=== PATIENT | female | born 1955 | race American Indian/Alaskan Native ===

== ENCOUNTER 2019-04-01 15:27 | Emergency (ER) | payer MEDICARE ==
--- NOTE | 2019-04-01 15:52 | Event Note ---
ED Screening Note Date of service: 04/01/19 Time: 15:48 ED Screening Note: This is a 64 y.o. F. that presents to the ER with swelling and tenderness to left deltoid for 2 weeks. Patient states she received a flu immunization 03/12/2019. Reports left sided neck pain and LUE. Taking NSAIDs without improvement. This initial assessment/diagnostic orders/clinical plan/treatment(s) is/are subject to change based on patients health status, clinical progression and re- assessment by fellow clinical providers in the ED. Further treatment and workup at subsequent clinical providers discretion. Patient/guardian urged not to elope from the ED as their condition may be serious if not clinically assessed and managed. Initial orders include:
[2019-04-01] MEDS ORDERED: TORADOL IM ONE (18:22)
--- NOTE | 2019-04-01 18:28 | Emergency Department Report ---
ED Neck Pain/Injury HPI - General Chief Complaint: Medical Clearance Stated Complaint: LFT SIDE PAIN Time Seen by Provider: 04/01/19 15:48 Mode of arrival: Ambulatory Limitations: No Limitations - History of Present Illness Initial Comments: Mrs. Oemr is a very pleasant 64-year-old female with history of hypertension and diabetes mellitus who presents with 1 week of left neck and left trapezius pain. 2 weeks ago she received flu immunization and her left shoulder. She denies any fever. She has pain with palpation of the left-sided neck and trapezius region. She has pain with moving her neck without side. She denies any persistent shoulder pain. No fever. No previous history of neck issues. Ibuprofen did not provide any relief. She was able to drive her private auto to the emergency department PCP Dr. Cuellar in [place] Complaint: neck pain -: Gradual, week(s) (1) Place: home, work Radiation: left lateral Severity: moderate Severity scale (0 -10): 7 Quality: dull Consistency: constant Improves With: none Worsens With: movement of neck Context: unknown Associated Symptoms: none - Related Data Previous Rx's Medication Instructions Recorded Last Taken Type Cyclobenzaprine [Flexeril] 10 mg PO TID PRN #20 tablet 04/01/19 Unknown Rx HYDROcodone/APAP 5-325 [[place] 1 each PO Q6HR PRN #10 tablet 04/01/19 Unknown Rx 5/325] Allergies Allergy/AdvReac Type Severity Reaction Status Date / Time No Known Allergies Allergy Unverified 04/01/19 15:28 ED Review of Systems ROS: Stated complaint: LFT SIDE PAIN Other details as noted in HPI Comment: All other systems reviewed and negative Constitutional: denies: fever, malaise Respiratory: denies: cough Cardiovascular: denies: chest pain Gastrointestinal: denies: abdominal pain, nausea, vomiting Skin: denies: rash, lesions Neurological: denies: headache, numbness, paresthesias ED Past Medical Hx - Past Medical History Previous Medical History?: Yes Hx Hypertension: Yes Hx Diabetes: Yes - Family History Family history: hypertension - Social History Smoking Status: Never Smoker Substance Use Type: None - Medications Home Medications: Home Medications Medication Instructions Recorded Confirmed Last Taken Type Cyclobenzaprine [Flexeril] 10 mg PO TID PRN #20 tablet 04/01/19 Unknown Rx HYDROcodone/APAP 5-325 [[place] 1 each PO Q6HR PRN #10 tablet 04/01/19 Unknown Rx 5/325] ED Physical Exam - General Limitations: No Limitations General appearance: alert, in no apparent distress, other (appears comfortable, appears healthy moves head easily) - Head Head exam: Present: atraumatic, normocephalic - Eye Eye exam: Present: normal appearance - ENT ENT exam: Present: mucous membranes moist - Neck Neck exam: Present: normal inspection, full ROM, other (tense left trapezius muscle). Absent: tenderness, meningismus - Respiratory Respiratory exam: Present: normal lung sounds bilaterally. Absent: respiratory distress, wheezes, rales, rhonchi - Cardiovascular Cardiovascular Exam: Present: regular rate, normal rhythm, normal heart sounds. Absent: systolic murmur, diastolic murmur, rubs, gallop - GI/Abdominal GI/Abdominal exam: Present: soft, normal bowel sounds. Absent: distended, tenderness, guarding, rebound - Extremities Exam Extremities exam: Present: normal inspection - Neurological Exam Neurological exam: Present: alert, oriented X3 - Psychiatric Psychiatric exam: Present: normal affect, normal mood - Skin Skin exam: Present: warm, dry, intact, normal color. Absent: rash ED Course Vital Signs 04/01/19 15:48 Temperature 97.6 F Pulse Rate 67 Respiratory 18 Rate Blood Pressure 180/73 O2 Sat by Pulse 100 Oximetry ED Medical Decision Making - Medical Decision Making Left-sided pain radiating into the trapezius: Differential diagnosis includes musculoskeletal versus cervical DDD. No indication of consultation from flu vaccination. She received Toradol IM in the emergency department. Prescribed norco and Flexeril. Strongly encouraged evaluation by her PCP for physical therapy and outpatient imaging. Critical care attestation.: If time is entered above; I have spent that time in minutes in the direct care of this critically ill patient, excluding procedure time. ED Disposition Clinical Impression: Cervical strain, acute Disposition: DC-01 TO HOME OR SELFCARE Is pt being admited?: No Does the pt Need Aspirin: No Condition: Stable Instructions: Cervical Sprain (ED) Additional Instructions: Please see your primary physician within the next week. You will need physical therapy and further tests. Prescriptions: Cyclobenzaprine [Flexeril] 10 mg PO TID PRN #20 tablet PRN Reason: Muscle Spasm HYDROcodone/APAP 5-325 [[place] 5/325] 1 each PO Q6HR PRN #10 tablet PRN Reason: Pain Referrals: PRIMARY CARE, [Referring] - 3-5 Days Forms: Work/School Release Form(ED)
[2019-04-01 18:57] VITALS: BP 195/98
== END 2019-04-01 18:57 | disposition home or self-care (01) ==
LOC: ED 15:27
DX: S16.1XXA Strain of muscle, fascia and tendon at neck level, initial encounter (principal); I10 Essential (primary) hypertension; E11.9 Type 2 diabetes mellitus without complications; Z79.899 Other long term (current) drug therapy; X58.XXXA Exposure to other specified factors, initial encounter; Y93.89 Activity, other specified; Y92.89 Other specified places as the place of occurrence of the external cause; Y99.8 Other external cause status
CPT/HCPCS: 96372; 99282; J1885